=== PATIENT | female | born 1940 | race Hispanic/Latino ===

== ENCOUNTER 2018-07-18 19:37 | Emergency (ER) | payer MEDICARE ==
--- NOTE | 2018-07-18 19:51 | C.PDOC ---
History Of Present Illness 77 year old female, whose past medical history includes high cholesterol, presents to the ED for evaluation per PMD's request after having well-check this morning. 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 Patient states she felt like she was at baseline at the time. Patient also complains of chronic shoulder pain secondary to arthritis, and states it is not worse than normal. CELL TENDER HELPER doing a well check on pt at the time called Dr. Gutierrez. Pt notes that [address] Gutierrez called the ambulance and police to present patient to the ED for further evaluation. Patient denies fever, chills, headache, night sweats, chest pain, shortness of breath, nausea, vomiting, rash, or complaints at this time. She denies any complaints. PMD: Dr. Gutierrez Time Seen by Provider: 07/18/18 19:51 Chief Complaint (Nursing): Upper Extremity Problem/Injury History Per: Patient History/Exam Limitations: no limitations Onset/Duration Of Symptoms: Days Current Symptoms Are (Timing): Still Present Additional History Per: Patient Past Medical History Reviewed: Historical Data, Nursing Documentation, Vital Signs - Medical History PMH: No Chronic Diseases Surgical History: No Surg Hx Family History: States: Unknown Family Hx Review Of Systems Constitutional: Negative for: Fever, Chills, Sweats Eyes: Negative for: Pain, Vision Change ENT: Negative for: Ear Pain, Ear Discharge Cardiovascular: Positive for: Other (tachycardic and hypertensive earlier in the day, none now). Negative for: Chest Pain Respiratory: Negative for: Cough, Shortness of Breath, SOB with Excertion Gastrointestinal: Negative for: Nausea, Vomiting Genitourinary: Negative for: Dysuria, Frequency Musculoskeletal: Positive for: Shoulder Pain (chronic ). Negative for: Neck Pain, Arm Pain, Back Pain, Hand Pain Skin: Negative for: Rash Neurological: Negative for: Weakness, Numbness, Incoordination Physical Exam - Physical Exam Appears: Well, Non-toxic, No Acute Distress Skin: Normal Color, Warm, Dry Head: Atraumatic, Normacephalic Eye(s): bilateral: Normal Inspection, PERRL, EOMI Ear(s): Bilateral: Normal Nose: Normal Oral Mucosa: Moist Tongue: Normal Appearing Lips: Normal Appearing Gingiva: Normal Appearing Throat: Normal, No Erythema, No Exudate Neck: Normal, Normal ROM, Supple, Other (no meningeal signs) Chest: Symmetrical, No Deformity, No Tenderness Cardiovascular: Rhythm Regular, No Murmur Respiratory: Normal Breath Sounds, No Rales, No Rhonchi, No Wheezing Gastrointestinal/Abdominal: Normal Exam, Soft, No Tenderness, No Organomegaly, No Mass, No Distention, No Guarding Back: Normal Inspection, No CVA Tenderness, No Vertebral Tenderness Extremity: Normal ROM, Capillary Refill (less than 2 seconds ) Pulses: Left Dorsalis Pedis: Normal, Right Dorsalis Pedis: Normal Neurological/Psych: Oriented x3, Normal Speech, Normal Cognition, Normal Cranial Nerves, No Cerebellar Signs, Normal Motor Gait: Steady Extremity: Right: No Drift, Left: No Drift, Upper: No Drift, Lower: No Drift ED Course And Treatment - Laboratory Results Result Diagrams: 07/18/18 21:33 07/18/18 21:33 O2 Sat by Pulse Oximetry: 95 (on RA) Pulse Ox Interpretation: Normal Medical Decision Making Medical Decision Making: Well appearing 77 yr old female w/ hx of HTN presents for evaluation of tachycardia and hypotension this morning which have fully resolved. She notes she was asymptomatic at the time and is at baseline mentation and physical capacity. She denies any current complaints. No JOYNER, Neck pain, eye complaints, throat pain, difficutly eating / drinking, chest pain, shortness of breath, abdominal pain, GI or complaints or any other issues. She denies any anxiety, SI, HI or depression. No other complaints. Differential diagnoses include but are not limited to: well-check vs arrhythmia Plan: * bloodwork * CXR * EKG * reassess and disposition Progress: Bloodwork, CXR, EKG ordered and reviewed. EK, nsr, no stemi Labs, imaging unremarkable VS largely unremarkable in ED pt in NAD. Paged Dr. Gutierrez multiple times without response. No indication of tachycardia in ED, or sepsis- clear for d/c home with return indications and followup Disposition - Disposition Referrals: Dylan Gutierrez DO [Staff Provider] - Disposition: HOME/ ROUTINE Disposition Time: 23:54 Condition: GOOD Additional Instructions: RETURN IF YOU HAVE ANY SIMILIAR SYMPTOMS TO THE ONES YOUR HAD EARLIER,. RETURN I F YOU FEEL ILL OR ARE HAVING PAIN BOLA SEGAL, thank you for letting us take care of you today. Your provider was Eliazar Lamb and you were treated for WELL VISIT. The emergency medical care you received today was directed at your acute symptoms. If you were prescribed any medication, please fill it and take as directed. It may take several days for your symptoms to resolve. Return to the Emergency Department if your symptoms worsen, do not improve, or if you have any other problems. Please contact your doctor or call one of the physicians/clinics you have been referred to that are listed on the Patient Visit Information form that is included in your discharge packet. Bring any paperwork you were given at discharge with you along with any medications you are taking to your follow up visit. Our treatment cannot replace ongoing medical care by a primary care provider outside of the emergency department. Thank you for allowing the [facility] team to be part of your care today. If you had an X-Ray or CT scan: A Radiologist will review the ED reading if any change in treatment is needed we will contact you. If you had a blood, urine, or wound culture: It will take several days for the results, if any change in treatment is needed we will contact you. If you had an STI test: It will take 48 hours for the results. Please call after 1 week if you have not heard back. Instructions: Tachycardia, Yearly Physical for Adults Forms: [employer] (Czech) - Clinical Impression Clinical Impression: Well adult health check - Scribe Statement The provider has reviewed the documentation as recorded by the Scribe (Stephanie Milligan) Provider Attestation: All medical record entries made by the Scribe were at my direction and personally dictated by me. I have reviewed the chart and agree that the record accurately reflects my personal performance of the history, physical exam, medical decision making, and the department course for this patient. I have also personally directed, reviewed, and agree with the discharge instructions and disposition.
[2018-07-18 21:36] LABS: BASO % 0.5 % (0.0-2.0); EOS # 0.1 K/uL (0.0-0.7); EOS % 2.1 % (0.0-4.0); HEMOGLOBIN 13.9 g/dL (11.0-16.0); LYMPH # 2.4 K/uL (1.0-4.3); LYMPH % 34.7 % (20.0-40.0); MEAN CELL VOLUME 83.9 fL (81.0-99.0); MEAN CORPUSCULAR HEMOGLOBIN 27.1 pg (27.0-31.0); MEAN CORPUSCULAR HGB CONC 32.3 g/dL (33.0-37.0); MEAN PLATELET VOLUME 8.5 fL (7.2-11.7); MONO # 0.5 K/uL (0.0-0.8); MONO % 7.5 % (0.0-10.0); NEUT # 3.8 K/uL (1.8-7.0); NEUT % 55.2 % (50.0-75.0); RBC 5.14 Mil/uL (3.80-5.20); RED CELL DISTRIBUTION WIDTH 14.2 % (11.5-14.5); WHITE BLOOD COUNT 6.9 K/uL (4.8-10.8)
[2018-07-18 21:54] LABS: ALB/GLOB RATIO 1.6 (1.0-2.1); ALBUMIN 3.9 g/dL (3.5-5.0); ALT/SGPT 19 U/L (9-52); AST/SGOT 22 U/L (14-36); BLOOD UREA NITROGEN 18 mg/dL (7-17); CALCIUM 8.8 mg/dl (8.6-10.4); GFR NON-AFRICAN AMERICAN > 60
[2018-07-19 00:05] VITALS: TEMP 97.8
[2018-07-19 01:07] VITALS: BP 124/61; PULSE 76; RESP 18; O2SAT 98
--- NOTE | 2018-07-19 11:25 | RAD ---
Chest x-ray two views History: Elevated heart rate. Comparison: None available. Findings: Linear increased markings in the left mid to lower lung zone and right lung base which may represent atelectasis and or infiltrate. Diffuse increased interstitial lung markings. Right hilar prominence. Tortuous aorta. Degenerative changes in the spine and shoulders. Impression: Linear increased markings in the left mid to lower lung zone and right lung base which may represent atelectasis and or infiltrate. Diffuse increased interstitial lung markings. Right hilar prominence. Tortuous aorta.
--- NOTE | 2018-07-19 14:18 | CARD ---
APPROVED REPORT Date of service: 07/18/2018 EKG Measurement Heart [id number] <Conclusion> Normal sinus rhythm Cannot rule out Anterior infarct, age undetermined Abnormal ECG
== END 2018-07-19 01:07 | disposition home or self-care (01) ==
LOC: C.ER 19:37
DX: Z04.89 Encounter for examination and observation for other specified reasons (principal)